=== PATIENT | male | born 1950 ===

== ENCOUNTER 2024-01-06 12:43 | Emergency (ER) | payer MEDICARE, OTHER, SELFPAY ==
--- NOTE | ~2024-01-06 | CT_ITS ---
EXAMINATION: CT HEAD WITHOUT CONTRAST CLINICAL INFORMATION: Confusion. COMPARISON: None available. TECHNIQUE: Contiguous axial imaging was performed from the skull base to vertex without intravenous administration of contrast. This CT examination was performed using dose optimization techniques as appropriate, variously including the following: *Automated exposure control *Adjustment of mA and/or kV according to patient size (this includes techniques or standardized protocols for targeted exams where dose is matched to indication/reason for exam; i.e. extremities or head) *Use of iterative reconstruction technique DLP: 780 mGy-cm FINDINGS: There is no acute intracranial hemorrhage. There is no evidence of acute/subacute cerebral or cerebellar infarction. There is no midline shift or mass effect. No extra-axial fluid collection. The ventricles are normal in size. The orbits are symmetric and within normal limits. The calvarium is intact. The mastoid air cells are clear. Visualized paranasal sinuses are clear. CT/CT head/brain wo IV con IMPRESSION: No acute intracranial pathology.
--- NOTE | ~2024-01-06 | XR_ITS ---
EXAMINATION: XR chest 1V CLINICAL INFORMATION: Reason for Exam confusion COMPARISON: No prior chest x-ray available for comparison TECHNIQUE: Single portable frontal view. Tubes and lines: None Lungs and pleura: Both lungs are clear. Heart and mediastinum: The mediastinum is within normal limits.. Bones/soft tissue: Hardware fusion lower cervical spine seen at the margin of the study otherwise unremarkable. XR/XR chest 1V IMPRESSION: No radiographic evidence of acute cardiopulmonary disease.
[2024-01-06 13:06] VITALS: BP 144/86; BP 149/74; PULSE 71; PULSE 72; RESP 18; TEMP 36.9; O2SAT 98; BMI 23.7
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
[2024-01-06 13:22] LABS: MANUAL DIFF FLAG NO
[2024-01-06 13:26] LABS: Basophils Percent Auto 0.6 % (0-2); Eosinophils Absolute Auto 0.1 X10*3/uL (0.0-0.4); Eosinophils Percent Auto 1.5 % (0-4); Hematocrit 36.2 % (42.0-52.0); Hemoglobin 12.6 g/dl (14.0-18.0); Imm Gran Abs Auto 0.02 X10*3/uL (0.00-0.03); Imm Gran Pct Auto 0.4 % (0.0-0.4); Lymphocytes Percent Auto 21.2 % (20-40); Mean Corpuscular HGB Conc 34.8 g/dl (31.0-36.0); Mean Corpuscular Hemoglobin 30.7 pg (27.0-33.0); Mean Corpuscular Volume 88.1 fL (80.0-98.0); Mean Platelet Volume 8.8 fL (9.4-12.4); Monocytes Absolute Auto 0.4 X10*3/uL (0.1-1.2); Monocytes Percent Auto 8.4 % (2-11); Neutrophils Absolute Auto 3.2 x10*3/uL (2.0-8.3); Neutrophils Percent Auto 67.9 % (45-73); Platelet Count 156 X10*3/uL (160-400); Red Blood Count 4.11 X10*6/uL (4.60-5.80); Red Cell Distribution Width 13.1 % (11.0-16.0); White Blood Count 4.8 X10*3/uL (4.8-10.8)
[2024-01-06 13:43] LABS: Anion Gap 9 (12-20); Blood Urea Nitrogen 18 mg/dL (9-16); Calcium 8.9 mg/dL (8.4-10.2); Carbon Dioxide 30 mmol/L (22-29); Chloride 104 mmol/L (96-108); Creatinine Clr Calc Pharmacy 65.8; Estimated Glomerular Filt Rate > 60; Glucose Random 152 mg/dL (60-115); Potassium 4.2 mmol/L (3.3-5.1); Sodium 139 mmol/L (135-145)
[2024-01-06 15:52] VITALS: BP 153/79; PULSE 68; RESP 18; TEMP 36.4; O2SAT 96
--- NOTE | 2024-01-06 19:12 | PC.NURSE ---
Report given to [facility]. Pt health care proxy Gautam Rogel (sister) informed of pt d/. Pt will be d/c home to [place] via ambulance.
[2024-01-07 00:05] VITALS: BP 143/74; PULSE 61; RESP 18; O2SAT 97
[2024-01-07 00:22] VITALS: BP 143/74; PULSE 61; RESP 18; TEMP 36.7; O2SAT 97
== END 2024-01-07 00:26 | disposition home or self-care (01) ==
PROVIDERS: Emergency Provider Emergency Medicine
DX: R41.82 Altered mental status, unspecified (principal); I10 Essential (primary) hypertension; E78.5 Hyperlipidemia, unspecified; Z79.899 Other long term (current) drug therapy; Z79.01 Long term (current) use of anticoagulants
CPT/HCPCS: 36415; 70450; 71045; 80048; 85025; 99284